=== PATIENT | male | born 1985 | race Caucasian/White ===

== ENCOUNTER 2018-09-10 17:29 | Emergency (ER) | payer SELFPAY ==
[~2018-09-10] VITALS: Ht 165.1 cm; Wt 74.8 kg
[2018-09-10] MEDS ORDERED: CEFTRIAXONE 1 G VIAL IM ONE (18:00)
[2018-09-10] MEDS ORDERED: AZITHROMYCIN 250 MG TABLET PO ONE (18:00)
[2018-09-10] MEDS ORDERED: CEFTRIAXONE 1 G VIAL ONE (18:06)
[2018-09-10] MEDS ORDERED: LIDOCAINE /MPF 1% VIAL 5 ML VIAL ONE (18:06)
[2018-09-10] MEDS ORDERED: LORAZEPAM 1 MG TABLET ONE (18:06)
[2018-09-10] MEDS ORDERED: AZITHROMYCIN 250 MG TABLET ONE (18:07)
[2018-09-10 18:16] LABS: BASOPHILS % (AUTO) 0.4 % (0.0-2.0); EOSINOPHILS % (AUTO) 0.9 % (0.0-6.0); HEMATOCRIT 53 % (39-51); HEMOGLOBIN 18.4 g/dL (13.5-17.5); LYMPHOCYTES # (AUTO) 0.7 /CMM (0.8-4.8); LYMPHOCYTES % (AUTO) 15.2 % (20.0-44.0); MEAN CORPUSCULAR HGB CONC 35 g/dl (31.0-36.0); MEAN CORPUSCULAR VOLUME 102 fL (80-96); MONOCYTES # (AUTO) 0.5 /CMM (0.1-1.30); MONOCYTES % (AUTO) 10.4 % (2.0-12.0); NEUTROPHILS # (AUTO) 3.3 /CMM (1.8-8.9); NEUTROPHILS % (AUTO) 73.1 % (43.0-81.0); PLATELET COUNT (AUTO) 190 /CMM (150-450); RED BLOOD CELL COUNT(AUTO) 5.23 MIL/uL (4.5-6.0); WHITE BLOOD COUNT (AUTO) 4.5 K/uL (4.3-11.0)
[2018-09-10 18:25] LABS: CALCIUM, SERUM 9.5 mg/dL (8.5-10.1); CARBON DIOXIDE 26 mmol/L (21-32); CHLORIDE 103 mmol/L (98-107); CREATININE 1.1 mg/dL (0.6-1.3); GLUCOSE 113 mg/dL (74-106); POTASSIUM 3.8 mmol/L (3.5-5.1); SODIUM SERUM 138 mmol/L (136-145); UREA NITROGEN, BLOOD 12 mg/dL (7-18)
[2018-09-10] MEDS ORDERED: LORAZEPAM 1 MG TABLET PO ONE (18:30)
[2018-09-10 18:31] LABS: ALANINE AMINOTRANSFERASE 47 U/L (12-78); ALKALINE PHOSPHATASE 65 U/L (46-116); ASPARTATE AMINOTRANSFERASE 42 U/L (15-37); BILIRUBIN,DIRECT 0.2 mg/dL (0.0-0.2); BILIRUBIN,TOTAL 0.7 mg/dL (0.2-1.0); TOTAL PROTEIN, SERUM 8.6 g/dL (6.4-8.2)
[2018-09-10 19:01] LABS: EOSINOPHILS % (MANUAL) 1 % (0-4); LYMPHOCYTES % (MANUAL) 17 % (16-48); MONOCYTES % (MANUAL) 8 % (0-11.0); NEUTROPHILS % (MANUAL) 74 (42-76)
[2018-09-10 19:03] VITALS: BP 148/95
--- NOTE | 2018-09-10 19:03 | NUR ---
PT BIBSELF FOR ANXIETY AND PANIC ATTAKCS SINCE THIS AM; PT AAOX4, RESPIRATIONS EVEN AND UNLABORED, NO SOB, NAD NOTED, VSS, PENDING ER PROVIDER CASPER
[2018-09-10 19:18] LABS: APPEARANCE,URINE Cloudy (CLEAR); BILIRUBIN,URINE SMALL (NEGATIVE); BLOOD, URINE Trace-intact Ery/uL (NEGATIVE); COLOR,URINE DARK YELLOW (YELLOW); KETONES,URINE 40 (NEGATIVE); LEUKOCYTE ESTERASE ,URINE Moderate (NEGATIVE); NITRITE, URINE Negative (NEGATIVE); PH,URINE 7.5 (5.0-8.0); PROTEIN,URINE 100 mg/dl (NEGATIVE); UGLUCOSE Negative (NEGATIVE)
[2018-09-10 19:26] LABS: BACTERIA,URINE Moderate /HPF (None Seen); SQUAMOUS EPITHELIAL CELL,UR Few /HPF (None Seen); WBC,URINE 21-50 /HPF (0-3)
[2018-09-10 19:27] LABS: MUCUS,URINE Many /LPF (None Seen)
--- NOTE | 2018-09-10 19:56 | NUR ---
Patient discharged to home in stable condition. Written and verbal after care instructions given. Patient verbalizes understanding of instruction.
== END 2018-09-10 19:57 | disposition home or self-care (01) ==
LOC: ER 17:33
DX: F41.9 Anxiety disorder, unspecified (principal); R07.89 Other chest pain; E86.0 Dehydration; F10.10 Alcohol abuse, uncomplicated
CPT/HCPCS: 36415; 71045; 80048; 80076; 80305; 81001; 84484; 85025; 85730; 87086; 87491; 87591; 93005; 96372; 99284; A4606; J0696; J3490; Z7610; 81000-TC

== ENCOUNTER 2022-07-18 05:46 | Emergency (ER) | payer OTHER ==
[~2022-07-18] VITALS: Ht 180.3 cm; Wt 113.4 kg
[~2022-07-18 05:46] MED LIST: CHLO25CA22 PO
--- NOTE | 2022-07-18 05:56 | NUR ---
PRESENTED TO THE ER FOR C/O HIGH BP AND ALCOHOL WITHDRAWAL. PER PT HE HAD HIS LAST DRINK 3 DAYS AGO. + SHAKING. DENIED ANY CP. NO SOB. NO FEVER. PT WAS PLACED IN BED 12 ER ON A MONITOR. AWAITING FOR MARY ALICE SHIRLEY.
[2022-07-18] MEDS ORDERED: LORAZEPAM INJ 2 MG/ML VIAL ONE (06:20)
--- NOTE | 2022-07-18 06:25 | NUR ---
URINE COLLECTED AND SENT TO LAB
[2022-07-18] MEDS ORDERED: LORAZEPAM INJ 2 MG/ML VIAL IVP ONE (06:30)
[2022-07-18] MEDS ORDERED: IV NS 0.9% 1,000 ML BAG IV ONE (06:30)
[2022-07-18 06:31] LABS: BASOPHILS % (AUTO) 0.6 % (0.0-2.0); EOSINOPHILS % (AUTO) 1.2 % (0.0-6.0); HEMATOCRIT 48 % (39-51); HEMOGLOBIN 16.3 g/dL (13.5-17.5); LYMPHOCYTES % (AUTO) 30.2 % (20.0-44.0); MEAN CORPUSCULAR HGB CONC 34 g/dl (31.0-36.0); MEAN CORPUSCULAR VOLUME 103 fL (80-96); MONOCYTES # (AUTO) 0.4 K/uL (0.1-1.30); MONOCYTES % (AUTO) 11.4 % (2.0-12.0); NEUTROPHILS # (AUTO) 1.9 K/uL (1.8-8.9); NEUTROPHILS % (AUTO) 56.6 % (43.0-81.0); PLATELET COUNT (AUTO) 152 K/uL (150-450); RED BLOOD CELL COUNT(AUTO) 4.69 MIL/uL (4.5-6.0); WHITE BLOOD COUNT (AUTO) 3.3 K/uL (4.3-11.0)
[2022-07-18 06:43] LABS: ALANINE AMINOTRANSFERASE 63 U/L (12-78); ALBUMIN 3.5 g/dL (3.4-5.0); ALKALINE PHOSPHATASE 69 U/L (46-116); ASPARTATE AMINOTRANSFERASE 87 U/L (15-37); BILIRUBIN,DIRECT 0.2 mg/dL (0.0-0.2); CALCIUM, SERUM 8.4 mg/dL (8.5-10.1); CARBON DIOXIDE 27 mmol/L (21-32); CHLORIDE 104 mmol/L (98-107); GLUCOSE 106 mg/dL (74-106); POTASSIUM 3.9 mmol/L (3.5-5.1); SODIUM SERUM 136 mmol/L (136-145); TOTAL PROTEIN, SERUM 7.7 g/dL (6.4-8.2); UREA NITROGEN, BLOOD 12 mg/dL (7-18)
[2022-07-18 06:48] LABS: ACETAMINOPHEN 0 ug/ml (10-30)
[2022-07-18 07:07] LABS: ALCOHOL, BLOOD 3 mg/dL (0-0)
--- NOTE | 2022-07-18 07:52 | NUR ---
COVID SWAB COLLECTED AND SENT TO LAB
--- NOTE | 2022-07-18 08:02 | NUR ---
[facility] [phone]
[2022-07-18] MEDS ORDERED: LORA-259 PO (08:20)
--- NOTE | 2022-07-18 09:17 | NUR ---
IV removed. Catheter intact and site benign. Pressure and 4x4 applied to site. No bleeding noted.
--- NOTE | 2022-07-18 09:21 | NUR ---
Patient discharged to home in stable condition. Written and verbal after care instructions given. Patient verbalizes understanding of instruction.
[2022-07-18 09:22] VITALS: BP 145/90
[2022-07-18 09:22] LABS: BILIRUBIN,URINE NEGATIVE (NEGATIVE); COLOR,URINE YELLOW (YELLOW); LEUKOCYTE ESTERASE ,URINE NEGATIVE (NEGATIVE); NITRITE, URINE NEGATIVE (NEGATIVE); PROTEIN,URINE TRACE mg/dl (NEGATIVE); UGLUCOSE NEGATIVE (NEGATIVE); UROBILINOGEN,URINE 0.2 EU/dL (0.2)
[2022-07-18 09:39] LABS: BACTERIA,URINE None seen /HPF (None Seen); RBC,URINE 0-2 /HPF (0-2); SQUAMOUS EPITHELIAL CELL,UR Rare /HPF (None Seen)
== END 2022-07-18 09:32 | disposition home or self-care (01) ==
LOC: ER 05:46
DX: F10.139 Alcohol abuse with withdrawal, unspecified (principal); I10 Essential (primary) hypertension; F19.10 Other psychoactive substance abuse, uncomplicated; R00.0 Tachycardia, unspecified; Z20.822 Contact with and (suspected) exposure to COVID-19
CPT/HCPCS: 99285; 96374; 96361; 93005; 71045; 85025; 80048; 87086; 80076; 81001; 36415; 87426; 80143; 80320; 80307; J2060; J7030; C9803; G0480

== ENCOUNTER 2022-11-22 08:28 | Emergency (ER) | payer OTHER ==
[~2022-11-22] VITALS: Ht 177.8 cm; Wt 116.6 kg
[~2022-11-22 08:28] MED LIST changes: +LORA-259 PO
--- NOTE | 2022-11-22 08:48 | NUR ---
Been an alcoholic x10yrs. Decided today I want to quit. Having withdrawals It got so bad- Drank on the way here. To er bed 11 awaiting md moralez.
--- NOTE | 2022-11-22 09:07 | NUR ---
dr camejo at bedside for eval.
[2022-11-22] MEDS ORDERED: ONDANSETRON HCL/PF 4 MG/2 ML VIAL ONE (09:12)
[2022-11-22] MEDS ORDERED: LORAZEPAM INJ 2 MG/ML VIAL ONE (09:13)
[2022-11-22] MEDS ORDERED: FAMOTIDINE/PF INJ 20 MG/2 ML VIAL IV ONE ×2 (09:13→09:30)
[2022-11-22] MEDS ORDERED: ONDANSETRON HCL/PF 4 MG/2 ML VIAL IV ONE (09:30)
[2022-11-22] MEDS ORDERED: LORAZEPAM INJ 2 MG/ML VIAL IV ONE (09:30)
[2022-11-22] MEDS ORDERED: IV NS 0.9% 1,000 ML IV ONE (09:30)
[2022-11-22] MEDS ORDERED: CHLO25CA22 PO (10:24)
--- NOTE | 2022-11-22 10:35 | NUR ---
pt resting, easily arousable. will continue to monitor.
--- NOTE | 2022-11-22 11:00 | NUR ---
Patient discharged to home in stable condition. Written and verbal after care instructions given. Patient verbalizes understanding of instruction.IV removed. Catheter intact and site benign. Pressure and 4x4 applied to site. No bleeding noted.
[2022-11-22 11:01] VITALS: BP 150/101
== END 2022-11-22 11:01 | disposition home or self-care (01) ==
LOC: ER 08:32
DX: F10.239 Alcohol dependence with withdrawal, unspecified (principal); I10 Essential (primary) hypertension; Z79.899 Other long term (current) drug therapy; Y90.9 Presence of alcohol in blood, level not specified
CPT/HCPCS: 99284; 96374; 96375; 96361; J2060; J3490; J2405; J7030

== ENCOUNTER 2022-11-25 01:31 | Emergency (ER) | payer OTHER ==
[~2022-11-25] VITALS: Ht 180.3 cm; Wt 116.6 kg
--- NOTE | 2022-11-25 02:25 | NUR ---
BIBBF FROM HOME C/O TAKING WRONG DOSE OF LIBRIUM ORDERED. C/O ABD PAIN, N/V, PALPITATIONS.PATIENT AWAKE AND ALERTX4 RR EVEN AND UNLABORED. DENIES ANY INTENTIONAL ATTEMPT TO OD, STATES HE JUST MISUNDERSTOOD DOSING. PLACED ON MONITOR AND NOTED HYPERTENSIVE.
--- NOTE | 2022-11-25 02:26 | NUR ---
DR MO SLADE AT PT'S BEDSIDE FOR EVAL
[2022-11-25] MEDS ORDERED: hydrALAZINE HCL IV 20 MG VIAL IV ONE ×2 (02:30→03:30)
[2022-11-25] MEDS ORDERED: hydrALAZINE HCL IV 20 MG VIAL ONE ×2 (02:32→03:30)
--- NOTE | 2022-11-25 02:46 | NUR ---
20G IV STARTED AT . BLOOD SENT TO LAB
--- NOTE | 2022-11-25 02:52 | NUR ---
PT BEING TRANSPORTED TO CT
[2022-11-25 03:11] LABS: EOSINOPHILS % (AUTO) 1.1 % (0.0-6.0); HEMATOCRIT 48 % (39-51); HEMOGLOBIN 15.8 g/dL (13.5-17.5); LYMPHOCYTES % (AUTO) 19.6 % (20.0-44.0); MEAN CORPUSCULAR HGB CONC 33 g/dl (31.0-36.0); MEAN CORPUSCULAR VOLUME 109 fL (80-96); MONOCYTES # (AUTO) 0.6 K/uL (0.1-1.30); MONOCYTES % (AUTO) 12.5 % (2.0-12.0); NEUTROPHILS # (AUTO) 3.4 K/uL (1.8-8.9); NEUTROPHILS % (AUTO) 66.8 % (43.0-81.0); PLATELET COUNT (AUTO) 110 K/uL (150-450)
[2022-11-25 03:21] LABS: CALCIUM, SERUM 9.2 mg/dL (8.5-10.1); CARBON DIOXIDE 25 mmol/L (21-32); CHLORIDE 101 mmol/L (98-107); GLUCOSE 113 mg/dL (74-106); SODIUM SERUM 136 mmol/L (136-145); UREA NITROGEN, BLOOD 16 mg/dL (7-18)
[2022-11-25 03:27] LABS: ALANINE AMINOTRANSFERASE 36 U/L (12-78); ALBUMIN 3.3 g/dL (3.4-5.0); ALKALINE PHOSPHATASE 78 U/L (46-116); ASPARTATE AMINOTRANSFERASE 45 U/L (15-37); BILIRUBIN,DIRECT 0.3 mg/dL (0.0-0.2); BILIRUBIN,TOTAL 0.9 mg/dL (0.2-1.0); TOTAL PROTEIN, SERUM 7.1 g/dL (6.4-8.2)
[2022-11-25] MEDS ORDERED: HYDR12.55 PO (04:07)
[2022-11-25] MEDS ORDERED: POTASSIUM CHLORIDE 20 MEQ TAB.PRT.SR PO ONE ×2 (04:30→04:35)
[2022-11-25 06:19] VITALS: BP 177/111
== END 2022-11-25 06:19 | disposition home or self-care (01) ==
LOC: ER 01:33
DX: I16.0 Hypertensive urgency (principal); R00.2 Palpitations; R42 Dizziness and giddiness; I10 Essential (primary) hypertension
CPT/HCPCS: 99285; 96374; 70450; 71045; 93005; 96376; 85025; 80048; 80076; 36415; 84484 ×2; 85730; J0360 ×2

== ENCOUNTER 2023-01-03 08:03 | Emergency (ER) | payer OTHER ==
[~2023-01-03] VITALS: Ht 177.8 cm; Wt 116.1 kg
[~2023-01-03 08:03] MED LIST changes: +HYDR12.55 PO
--- NOTE | 2023-01-03 08:25 | NUR ---
RECEIVED PT 37 YRS MALE FROM HOME WALKING IN C/O ETOH WITHDROW N/V AWAKE AND ALERT
--- NOTE | 2023-01-03 08:40 | NUR ---
SEEN BY DR. HANKS AT BED SIDE
[2023-01-03] MEDS ORDERED: CHLO25CA22 PO (08:43)
--- NOTE | 2023-01-03 08:50 | NUR ---
INsetrted garethocatheter g [address] forarm blood drow and sent to lab
[2023-01-03] MEDS ORDERED: LORAZEPAM INJ 2 MG/ML VIAL IV ONE ×2 (09:00→10:30)
[2023-01-03] MEDS ORDERED: IV NS 0.9% 1,000 ML IV ONE (09:00)
[2023-01-03] MEDS ORDERED: ONDANSETRON HCL/PF 4 MG/2 ML VIAL IV ONE (09:00)
--- NOTE | 2023-01-03 09:10 | NUR ---
UA SENT TO LAB
[2023-01-03] MEDS ORDERED: ONDANSETRON HCL/PF 4 MG/2 ML VIAL ONE (09:11)
[2023-01-03] MEDS ORDERED: LORAZEPAM INJ 2 MG/ML VIAL ONE ×2 (09:12→10:11)
--- NOTE | 2023-01-03 09:47 | NUR ---
RESTING AND COMFORTABLE NO N/V
--- NOTE | 2023-01-03 10:04 | NUR ---
PT ASLEEPY LOOKS COMFORTABLE
[2023-01-03] MEDS ORDERED: CHLORDIAZEPOXIDE HCL 25 MG CAPSULE ONE (10:10)
[2023-01-03] MEDS ORDERED: AMLO-212 PO (10:15)
[2023-01-03] MEDS ORDERED: CHLORDIAZEPOXIDE HCL 25 MG CAPSULE PO ONE (10:30)
--- NOTE | 2023-01-03 10:35 | NUR ---
RESTING AND ASLEEPY NO N/V NOTED
--- NOTE | 2023-01-03 11:00 | NUR ---
IV removed. Catheter intact and site benign. Pressure and 4x4 applied to site. No bleeding noted.
--- NOTE | 2023-01-03 11:04 | NUR ---
Patient discharged to home in stable condition. Written and verbal after care instructions given. Patient verbalizes understanding of instruction.
[2023-01-03 11:15] VITALS: BP 148/100
== END 2023-01-03 11:17 | disposition home or self-care (01) ==
LOC: ER 08:06
DX: K29.20 Alcoholic gastritis without bleeding (principal); F10.139 Alcohol abuse with withdrawal, unspecified; I10 Essential (primary) hypertension; Z79.899 Other long term (current) drug therapy; Y90.9 Presence of alcohol in blood, level not specified
CPT/HCPCS: 99285; 96374; 96361; 96375; 96376; J2060 ×2; J2405; J7030

== ENCOUNTER 2023-06-09 07:24 | Emergency (ER) | payer MEDICAID, OTHER ==
[~2023-06-09] VITALS: Ht 180.3 cm; Wt 119.7 kg
[~2023-06-09 07:24] MED LIST changes: +AMLO-212 PO
[2023-06-09] MEDS ORDERED: LORAZEPAM 1 MG TABLET PO ONE (08:30)
[2023-06-09] MEDS ORDERED: CHLO25CA22 PO ×2 (08:33→12:57)
[2023-06-09] MEDS ORDERED: LORAZEPAM 1 MG TABLET ONE (08:37)
[2023-06-09 09:44] VITALS: BP 175/125; TEMP 98.3; O2SAT 99
== END 2023-06-09 09:45 | disposition home or self-care (01) ==
LOC: ER 07:27
DX: F10.239 Alcohol dependence with withdrawal, unspecified (principal); I10 Essential (primary) hypertension; Y90.9 Presence of alcohol in blood, level not specified
CPT/HCPCS: 99283; A4223

== ENCOUNTER 2023-09-16 06:12 | Emergency (ER) | payer SELFPAY ==
[~2023-09-16] VITALS: Ht 180.3 cm; Wt 118.4 kg
[2023-09-16] MEDS ORDERED: PHENOBARBITAL SODIUM 130 MG/ML VIAL ONE ×2 (06:52→09:00)
[2023-09-16] MEDS ORDERED: ONDANSETRON HCL/PF 4 MG/2 ML VIAL ONE (06:52)
[2023-09-16] MEDS ORDERED: THIAMINE HCL 100 MG TABLET PO ONE (07:00)
[2023-09-16] MEDS ORDERED: ONDANSETRON HCL/PF 4 MG/2 ML VIAL IVP ONE (07:00)
[2023-09-16] MEDS ORDERED: PHENOBARBITAL SODIUM 130 MG/ML VIAL IV ONE ×2 (07:00→09:00)
[2023-09-16] MEDS ORDERED: IV NS 0.9% 1,000 ML BAG IV ONE ×2 (07:00→09:00)
[2023-09-16] MEDS ORDERED: MULTIVITAMINS,THERAGRAN 1 UDTAB TABLET PO SCH (07:00)
[2023-09-16 07:22] VITALS: TEMP 98.1
[2023-09-16 07:23] LABS: BASOPHILS % (AUTO) 0.5 % (0.0-2.0); EOSINOPHILS % (AUTO) 1.4 % (0.0-6.0); HEMATOCRIT 47 % (39-51); HEMOGLOBIN 15.7 g/dL (13.5-17.5); LYMPHOCYTES # (AUTO) 0.8 K/uL (0.8-4.8); LYMPHOCYTES % (AUTO) 31.2 % (20.0-44.0); MEAN CORPUSCULAR HEMOGLOBIN 35 PG (26.0-33.0); MEAN CORPUSCULAR HGB CONC 34 g/dl (31.0-36.0); MEAN CORPUSCULAR VOLUME 105 fL (80-96); MONOCYTES # (AUTO) 0.4 K/uL (0.1-1.30); MONOCYTES % (AUTO) 14.8 % (2.0-12.0); NEUTROPHILS # (AUTO) 1.4 K/uL (1.8-8.9); NEUTROPHILS % (AUTO) 52.1 % (43.0-81.0); PLATELET COUNT (AUTO) 122 K/uL (150-450); RED BLOOD CELL COUNT(AUTO) 4.44 MIL/uL (4.5-6.0); RED CELL DISTRIBUTION WIDTH 19.5 % (11.5-15.0); WHITE BLOOD COUNT (AUTO) 2.7 K/uL (4.3-11.0)
[2023-09-16] MEDS ORDERED: MULTIVITAMINS,THERAGRAN 1 UDTAB TABLET ONE (07:24)
[2023-09-16] MEDS ORDERED: THIAMINE HCL 100 MG TABLET ONE (07:24)
[2023-09-16 07:28] LABS: CALCIUM, SERUM 7.9 mg/dL (8.5-10.1); CREATININE 0.9 mg/dL (0.6-1.3); POTASSIUM 3.5 mmol/L (3.5-5.1)
[2023-09-16] MEDS ORDERED: CHLO25CA22 PO ×2 (10:43→15:52)
[2023-09-16 11:01] VITALS: BP 145/87; O2SAT 98
== END 2023-09-16 11:02 | disposition home or self-care (01) ==
LOC: ER 06:17
DX: F10.239 Alcohol dependence with withdrawal, unspecified (principal); I10 Essential (primary) hypertension; E86.0 Dehydration; R11.0 Nausea; Y90.9 Presence of alcohol in blood, level not specified
CPT/HCPCS: 99284; 96374; 96361; 96375; 96376; 85025; 80048; 36415; J2560 ×2; J2405; J7030 ×2

== ENCOUNTER 2023-11-28 06:09 | Emergency (ER) | payer MEDICAID ==
[~2023-11-28] VITALS: Ht 185.4 cm; Wt 94.3 kg
[2023-11-28] MEDS ORDERED: ONDANSETRON HCL/PF 4 MG/2 ML VIAL ONE (07:29)
[2023-11-28] MEDS ORDERED: hydrALAZINE HCL IV 20 MG VIAL ONE (07:29)
[2023-11-28] MEDS ORDERED: LORAZEPAM INJ 2 MG/ML VIAL ONE (07:29)
[2023-11-28] MEDS ORDERED: Thiamine 100 MG/ML VIAL ONE (07:29)
[2023-11-28 07:36] LABS: BASOPHILS % (AUTO) 0.3 % (0.0-2.0); EOSINOPHILS # (AUTO) 0.1 K/uL (0.0-0.7); EOSINOPHILS % (AUTO) 1.3 % (0.0-6.0); HEMATOCRIT 46 % (39-51); HEMOGLOBIN 15.8 g/dL (13.5-17.5); LYMPHOCYTES # (AUTO) 1.1 K/uL (0.8-4.8); LYMPHOCYTES % (AUTO) 27.5 % (20.0-44.0); MEAN CORPUSCULAR HEMOGLOBIN 35 PG (26.0-33.0); MEAN CORPUSCULAR HGB CONC 35 g/dl (31.0-36.0); MEAN CORPUSCULAR VOLUME 103 fL (80-96); MONOCYTES # (AUTO) 0.6 K/uL (0.1-1.30); MONOCYTES % (AUTO) 14.7 % (2.0-12.0); NEUTROPHILS # (AUTO) 2.2 K/uL (1.8-8.9); NEUTROPHILS % (AUTO) 56.2 % (43.0-81.0); PLATELET COUNT (AUTO) 151 K/uL (150-450); RED BLOOD CELL COUNT(AUTO) 4.46 MIL/uL (4.5-6.0); RED CELL DISTRIBUTION WIDTH 16.7 % (11.5-15.0); WHITE BLOOD COUNT (AUTO) 3.8 K/uL (4.3-11.0)
[2023-11-28] MEDS: Thiamine 100 MG in IV D5W 50 ML IV SCH (07:41)
[2023-11-28] MEDS: LORAZEPAM INJ 2 MG/ML VIAL IV ONE (07:41)
[2023-11-28] MEDS: hydrALAZINE HCL IV 20 MG VIAL IV ONE (07:41)
[2023-11-28] MEDS: IV NS 0.9% 1,000 ML BAG IV ONE (07:41)
[2023-11-28] MEDS: ONDANSETRON HCL/PF - ER 4 MG/2 ML VIAL IV ONE (07:41)
[2023-11-28 07:47] LABS: APPEARANCE,URINE CLEAR (CLEAR); BILIRUBIN,URINE 1+ (NEGATIVE); BLOOD, URINE TRACE-INTA Ery/uL (NEGATIVE); COLOR,URINE YELLOW (YELLOW); KETONES,URINE 1+ mg/dL (NEGATIVE); LEUKOCYTE ESTERASE ,URINE NEGATIVE (NEGATIVE); NITRITE, URINE NEGATIVE (NEGATIVE); PH,URINE 6.5 (5.0-8.0); PROTEIN,URINE 2+ mg/dl (NEGATIVE); UGLUCOSE NEGATIVE (NEGATIVE)
[2023-11-28 07:51] LABS: CALCIUM, SERUM 8.4 mg/dL (8.5-10.1); CARBON DIOXIDE 27 mmol/L (21-32); CHLORIDE 104 mmol/L (98-107); CREATININE 0.8 mg/dL (0.6-1.3); GLUCOSE 95 mg/dL (74-106); POTASSIUM 3.6 mmol/L (3.5-5.1); SODIUM SERUM 141 mmol/L (136-145); UREA NITROGEN, BLOOD 10 mg/dL (7-18)
[2023-11-28 07:59] LABS: ALANINE AMINOTRANSFERASE 87 U/L (12-78); ALBUMIN 3.5 g/dL (3.4-5.0); ALCOHOL, BLOOD 37 mg/dL (0-10); ALKALINE PHOSPHATASE 56 U/L (46-116); ASPARTATE AMINOTRANSFERASE 162 U/L (15-37); BILIRUBIN,DIRECT 0.3 mg/dL (0.0-0.2); TOTAL PROTEIN, SERUM 7.6 g/dL (6.4-8.2)
[2023-11-28 08:02] LABS: SALICYLATE < 0.2 mg/dL (2.8-20.0)
[2023-11-28 08:03] LABS: ACETAMINOPHEN <10 ug/ml (10-30)
[2023-11-28 08:12] LABS: AMPHETAMINE, URINE NEGATIVE (NEGATIVE); BARBITURATE, URINE NEGATIVE (NEGATIVE); BENZODIAZEPINE, URINE NEGATIVE (NEGATIVE); COCCAINE, URINE NEGATIVE (NEGATIVE); OPIATE, URINE NEGATIVE (NEGATIVE); PHENCYCLIDINE SCREEN,URINE NEGATIVE (NEGATIVE)
[2023-11-28 08:13] LABS: CANNABINOID, URINE POSITIVE (NEGATIVE)
[2023-11-28 08:35] LABS: ADD URINE CULTURE NO; BACTERIA,URINE None seen /HPF (None Seen); WBC,URINE NONE SEEN /HPF (0-3)
[2023-11-28 08:36] LABS: MUCUS,URINE Moderate /LPF (None Seen)
[2023-11-28] MEDS ORDERED: CHLO25CA22 PO (08:50)
[2023-11-28] MEDS ORDERED: AMLO-212 PO (08:50)
[2023-11-28 09:19] VITALS: BP 128/78; TEMP 98.2; O2SAT 97
== END 2023-11-28 09:20 | disposition home or self-care (01) ==
LOC: ER 06:09
DX: F10.139 Alcohol abuse with withdrawal, unspecified (principal); I10 Essential (primary) hypertension; Z79.899 Other long term (current) drug therapy; Y90.1 Blood alcohol level of 20-39 mg/100 ml
CPT/HCPCS: 36415; 71045-TC; 80048-TC; 80076-TC; 81001; 85025-TC; G0480; J0360; J2060; J2405; J3411; J7030; J7060

== ENCOUNTER 2024-01-08 04:14 | Emergency (ER) | payer MEDICAID ==
[~2024-01-08] VITALS: Ht 182.9 cm; Wt 90.7 kg
[2024-01-08] MEDS ORDERED: ONDANSETRON HCL/PF 4 MG/2 ML VIAL ONE (04:48)
[2024-01-08] MEDS ORDERED: LORAZEPAM INJ 2 MG/ML VIAL ONE (04:49)
[2024-01-08] MEDS: IV NS 0.9% 1,000 ML BAG IV ONE (05:14)
[2024-01-08] MEDS: LORAZEPAM INJ 2 MG/ML VIAL IV ONE (05:14)
[2024-01-08] MEDS: ONDANSETRON HCL/PF 4 MG/2 ML VIAL IVP ONE (05:14)
[2024-01-08 05:29] LABS: BASOPHILS % (AUTO) 0.4 % (0.0-2.0); EOSINOPHILS # (AUTO) 0.1 K/uL (0.0-0.7); EOSINOPHILS % (AUTO) 1.2 % (0.0-6.0); HEMATOCRIT 47 % (39-51); LYMPHOCYTES # (AUTO) 2.5 K/uL (0.8-4.8); LYMPHOCYTES % (AUTO) 44.1 % (20.0-44.0); MEAN CORPUSCULAR HEMOGLOBIN 34 PG (26.0-33.0); MEAN CORPUSCULAR HGB CONC 34 g/dl (31.0-36.0); MEAN CORPUSCULAR VOLUME 101 fL (80-96); MONOCYTES # (AUTO) 0.5 K/uL (0.1-1.30); MONOCYTES % (AUTO) 9.4 % (2.0-12.0); NEUTROPHILS # (AUTO) 2.5 K/uL (1.8-8.9); NEUTROPHILS % (AUTO) 44.9 % (43.0-81.0); PLATELET COUNT (AUTO) 181 K/uL (150-450); RED BLOOD CELL COUNT(AUTO) 4.65 MIL/uL (4.5-6.0); RED CELL DISTRIBUTION WIDTH 15.9 % (11.5-15.0); WHITE BLOOD COUNT (AUTO) 5.6 K/uL (4.3-11.0)
[2024-01-08] MEDS ORDERED: CHLO25CA22 PO (05:34)
[2024-01-08] MEDS ORDERED: ONDA4TAB5 PO (05:34)
[2024-01-08 05:42] LABS: BILIRUBIN,DIRECT 0.3 mg/dL (0.0-0.2); BILIRUBIN,TOTAL 1.1 mg/dL (0.2-1.0); CALCIUM, SERUM 8.3 mg/dL (8.5-10.1); POTASSIUM 3.2 mmol/L (3.5-5.1); TOTAL PROTEIN, SERUM 6.7 g/dL (6.4-8.2)
[2024-01-08 06:18] VITALS: BP 136/89; TEMP 98.6; O2SAT 98
== END 2024-01-08 06:18 | disposition home or self-care (01) ==
LOC: ER 04:17
DX: F10.139 Alcohol abuse with withdrawal, unspecified (principal); I10 Essential (primary) hypertension; M79.10 Myalgia, unspecified site; Y90.9 Presence of alcohol in blood, level not specified
CPT/HCPCS: 99284; 96374; 96361; 96375; 93005; 85025; 80048; 83690; 80076; 36415; J2060; J2405; J7030

== ENCOUNTER 2024-05-23 19:59 | Emergency (ER) | payer SELFPAY ==
[~2024-05-23] VITALS: Ht 177.8 cm; Wt 113.4 kg
[~2024-05-23 19:59] MED LIST changes: +ONDA4TAB5 PO
[2024-05-23] MEDS: FOLIC ACID 1 MG TABLET PO ONE (21:00)
[2024-05-23] MEDS: THIAMINE HCL 100 MG TABLET PO ONE (21:00)
[2024-05-23] MEDS: IV NS 0.9% 1,000 ML BAG IV ONE (21:00)
[2024-05-23] MEDS: FAMOTIDINE/PF INJ 20 MG/2 ML VIAL IV ONE (21:00)
[2024-05-23 21:11] LABS: BASOPHILS % (AUTO) 0.5 % (0.0-2.0); EOSINOPHILS # (AUTO) 0.1 K/uL (0.0-0.7); EOSINOPHILS % (AUTO) 1.1 % (0.0-6.0); HEMATOCRIT 51 % (39-51); HEMOGLOBIN 17.3 g/dL (13.5-17.5); LYMPHOCYTES # (AUTO) 1.6 K/uL (0.8-4.8); LYMPHOCYTES % (AUTO) 32.8 % (20.0-44.0); MEAN CORPUSCULAR HEMOGLOBIN 36 PG (26.0-33.0); MEAN CORPUSCULAR HGB CONC 34 g/dl (31.0-36.0); MEAN CORPUSCULAR VOLUME 104 fL (80-96); MONOCYTES # (AUTO) 0.7 K/uL (0.1-1.30); MONOCYTES % (AUTO) 14.2 % (2.0-12.0); NEUTROPHILS # (AUTO) 2.5 K/uL (1.8-8.9); NEUTROPHILS % (AUTO) 51.4 % (43.0-81.0); PLATELET COUNT (AUTO) 124 K/uL (150-450); RED BLOOD CELL COUNT(AUTO) 4.84 MIL/uL (4.5-6.0); RED CELL DISTRIBUTION WIDTH 14.7 % (11.5-15.0); WHITE BLOOD COUNT (AUTO) 4.8 K/uL (4.3-11.0)
[2024-05-23] MEDS ORDERED: FAMOTIDINE/PF INJ 20 MG/2 ML VIAL IV ONE (21:11)
[2024-05-23] MEDS ORDERED: FOLIC ACID 1 MG TABLET ONE (21:11)
[2024-05-23] MEDS ORDERED: THIAMINE HCL 100 MG TABLET ONE (21:11)
[2024-05-23] MEDS ORDERED: CHLO25CA22 PO (21:22)
[2024-05-23 21:45] LABS: CALCIUM, SERUM 8.5 mg/dL (8.5-10.1); POTASSIUM 3.4 mmol/L (3.5-5.1)
[2024-05-23 21:49] LABS: ALBUMIN 3.7 g/dL (3.4-5.0); BILIRUBIN,DIRECT 0.3 mg/dL (0.0-0.2); BILIRUBIN,TOTAL 1.1 mg/dL (0.2-1.0); TOTAL PROTEIN, SERUM 7.8 g/dL (6.4-8.2)
[2024-05-23 22:16] LABS: EOSINOPHILS % (MANUAL) 2 % (0-4); LYMPHOCYTES % (MANUAL) 32 % (16-48); MONOCYTES % (MANUAL) 11 % (0-11.0); NEUTROPHILS % (MANUAL) 55 (42-76); PLATELET ESTIMATE DECREASED
[2024-05-23 22:17] LABS: ANISOCYTOSIS 1+
[2024-05-24 00:53] VITALS: BP 126/79; TEMP 98.3; O2SAT 98
== END 2024-05-24 00:54 | disposition home or self-care (01) ==
LOC: ER 20:01
DX: K29.20 Alcoholic gastritis without bleeding (principal); F10.10 Alcohol abuse, uncomplicated; E86.0 Dehydration; I10 Essential (primary) hypertension; F17.290 Nicotine dependence, other tobacco product, uncomplicated; Z79.899 Other long term (current) drug therapy; Y90.9 Presence of alcohol in blood, level not specified
CPT/HCPCS: 99283; 96374; 96361; 85025; 80048; 83690; 80076; 36415; 85007; J3490; J7030

== ENCOUNTER 2024-09-23 05:52 | Emergency (ER) | payer SELFPAY ==
[~2024-09-23] VITALS: Ht 180.3 cm; Wt 113.4 kg
[2024-09-23] MEDS ORDERED: ONDANSETRON HCL/PF 4 MG/2 ML VIAL ONE (06:47)
[2024-09-23] MEDS ORDERED: FAMOTIDINE/PF INJ 20 MG/2 ML VIAL IV ONE (06:48)
[2024-09-23] MEDS: FAMOTIDINE/PF INJ 20 MG/2 ML VIAL IV ONE (06:53)
[2024-09-23] MEDS: ONDANSETRON HCL/PF 4 MG/2 ML VIAL IVP ONE (06:53)
[2024-09-23] MEDS: IV NS 0.9% 500 ML BAG IV ONE (06:53)
[2024-09-23 07:15] LABS: BASOPHILS % (AUTO) 0.6 % (0.0-2.0); EOSINOPHILS % (AUTO) 0.7 % (0.0-6.0); HEMATOCRIT 50 % (39-51); HEMOGLOBIN 17.5 g/dL (13.5-17.5); LYMPHOCYTES # (AUTO) 1.8 K/uL (0.8-4.8); LYMPHOCYTES % (AUTO) 37.1 % (20.0-44.0); MEAN CORPUSCULAR HEMOGLOBIN 36 PG (26.0-33.0); MEAN CORPUSCULAR HGB CONC 35 g/dl (31.0-36.0); MEAN CORPUSCULAR VOLUME 101 fL (80-96); MONOCYTES # (AUTO) 0.5 K/uL (0.1-1.30); MONOCYTES % (AUTO) 10.4 % (2.0-12.0); NEUTROPHILS # (AUTO) 2.5 K/uL (1.8-8.9); NEUTROPHILS % (AUTO) 51.2 % (43.0-81.0); PLATELET COUNT (AUTO) 110 K/uL (150-450); RED BLOOD CELL COUNT(AUTO) 4.94 MIL/uL (4.5-6.0); RED CELL DISTRIBUTION WIDTH 15.8 % (11.5-15.0); WHITE BLOOD COUNT (AUTO) 4.9 K/uL (4.3-11.0)
[2024-09-23 07:25] LABS: ALBUMIN 3.8 g/dL (3.4-5.0); BILIRUBIN,DIRECT 0.4 mg/dL (0.0-0.2); BILIRUBIN,TOTAL 1.4 mg/dL (0.2-1.0); CALCIUM, SERUM 8.3 mg/dL (8.5-10.1); POTASSIUM 3.7 mmol/L (3.5-5.1); TOTAL PROTEIN, SERUM 7.9 g/dL (6.4-8.2)
[2024-09-23] MEDS ORDERED: FAMO-131 PO (07:53)
[2024-09-23] MEDS ORDERED: CHLO25CA22 PO (07:53)
[2024-09-23 08:01] VITALS: BP 170/110; TEMP 98.4; O2SAT 100
== END 2024-09-23 08:02 | disposition home or self-care (01) ==
LOC: ER 05:52
DX: K29.20 Alcoholic gastritis without bleeding (principal); F10.10 Alcohol abuse, uncomplicated; I10 Essential (primary) hypertension; Z79.899 Other long term (current) drug therapy; Y90.9 Presence of alcohol in blood, level not specified
CPT/HCPCS: 99284; 96374; 96375; 85025; 80048; 83690; 80076; 36415; J3490; J2405; J7040

== ENCOUNTER 2024-09-25 03:18 | Emergency (ER) | payer SELFPAY ==
[~2024-09-25] VITALS: Ht 180.3 cm; Wt 113.4 kg
[~2024-09-25 03:18] MED LIST changes: +FAMO-131 PO
[2024-09-25] MEDS: PANTOPRAZOLE 40 MG TABLET.DR PO ONE (05:30)
[2024-09-25] MEDS ORDERED: PANT40TA49 PO (05:33)
[2024-09-25] MEDS ORDERED: ONDA4TAB5 PO (05:33)
[2024-09-25] MEDS ORDERED: PANTOPRAZOLE 40 MG TABLET.DR PO ONE (05:35)
[2024-09-25 05:53] VITALS: BP 157/110; TEMP 98.3; O2SAT 98
== END 2024-09-25 05:53 | disposition home or self-care (01) ==
LOC: ER 03:18
DX: K29.20 Alcoholic gastritis without bleeding (principal); I10 Essential (primary) hypertension; Z79.899 Other long term (current) drug therapy

== ENCOUNTER 2025-01-27 17:47 | Emergency (ER) | payer MEDICAID ==
[~2025-01-27] VITALS: Ht 177.8 cm; Wt 117.9 kg
[~2025-01-27 17:47] MED LIST changes: +PANT40TA49 PO
[2025-01-27 18:08] VITALS: TEMP 98.3
[2025-01-27] MEDS ORDERED: LIDOCAINE VISCOUS 2% UD 15 ML UDC ONE (18:27)
[2025-01-27] MEDS ORDERED: PANTOPRAZOLE 40 MG VIAL ONE (18:27)
[2025-01-27] MEDS ORDERED: MAG HYDROX/AL HYDROX/SIMETH 30 ML UDC ONE (18:27)
[2025-01-27] MEDS ORDERED: FAMOTIDINE/PF INJ 20 MG/2 ML VIAL IV ONE (18:27)
[2025-01-27] MEDS: IV NS 0.9% 1,000 ML BAG IV ONE (18:35)
[2025-01-27] MEDS: FAMOTIDINE/PF INJ 20 MG/2 ML VIAL IV ONE (18:36)
[2025-01-27] MEDS: PANTOPRAZOLE 40 MG VIAL IV ONE (18:37)
[2025-01-27 18:38] LABS: BASOPHILS % (AUTO) 0.3 % (0.0-2.0); EOSINOPHILS % (AUTO) 0.4 % (0.0-6.0); HEMATOCRIT 50 % (39-51); HEMOGLOBIN 17.3 g/dL (13.5-17.5); LYMPHOCYTES # (AUTO) 1.5 K/uL (0.8-4.8); MEAN CORPUSCULAR HEMOGLOBIN 36 PG (26.0-33.0); MEAN CORPUSCULAR HGB CONC 35 g/dl (31.0-36.0); MEAN CORPUSCULAR VOLUME 104 fL (80-96); MONOCYTES # (AUTO) 0.6 K/uL (0.1-1.30); MONOCYTES % (AUTO) 9.7 % (2.0-12.0); NEUTROPHILS # (AUTO) 4.3 K/uL (1.8-8.9); NEUTROPHILS % (AUTO) 66.6 % (43.0-81.0); PLATELET COUNT (AUTO) 136 K/uL (150-450); RED BLOOD CELL COUNT(AUTO) 4.82 MIL/uL (4.5-6.0); RED CELL DISTRIBUTION WIDTH 15.2 % (11.5-15.0); WHITE BLOOD COUNT (AUTO) 6.5 K/uL (4.3-11.0)
[2025-01-27] MEDS: LIDOCAINE VISCOUS 2% UD 15 ML UDC MM ONE (18:40)
[2025-01-27] MEDS: MAG HYDROX/AL HYDROX/SIMETH 30 ML UDC PO ONE (18:40)
[2025-01-27 18:48] LABS: CALCIUM, SERUM 8.8 mg/dL (8.5-10.1)
[2025-01-27] MEDS ORDERED: ACETAMINOPHEN 325 MG TABLET ONE (18:49)
[2025-01-27 18:54] LABS: ALBUMIN 3.6 g/dL (3.4-5.0)
[2025-01-27] MEDS: ACETAMINOPHEN 325 MG TABLET PO ONE (18:54)
[2025-01-27] MEDS: ACETAMINOPHEN 650 MG/20.3 ML UDC PO ONE (18:55)
[2025-01-27 19:37] LABS: APPEARANCE,URINE CLEAR (CLEAR); BILIRUBIN,URINE SMALL (NEGATIVE); BLOOD, URINE Negative Ery/uL (NEGATIVE); COLOR,URINE YELLOW (YELLOW); KETONES,URINE Trace mg/dL (NEGATIVE); LEUKOCYTE ESTERASE ,URINE Negative (NEGATIVE); PROTEIN,URINE 100 mg/dl (NEGATIVE); UGLUCOSE Negative (NEGATIVE)
[2025-01-27 19:39] LABS: ADD URINE CULTURE NO; BACTERIA,URINE None seen /HPF (None Seen); NITRITE, URINE NEGATIVE (NEGATIVE); RBC,URINE 0-2 /HPF (0-2); SQUAMOUS EPITHELIAL CELL,UR None Seen /HPF (None Seen); WBC,URINE 0-2 /HPF (0-3)
[2025-01-27 19:44] LABS: AMPHETAMINE, URINE NEGATIVE (NEGATIVE); BARBITURATE, URINE NEGATIVE (NEGATIVE); BENZODIAZEPINE, URINE NEGATIVE (NEGATIVE); COCCAINE, URINE NEGATIVE (NEGATIVE); OPIATE, URINE NEGATIVE (NEGATIVE); PHENCYCLIDINE SCREEN,URINE NEGATIVE (NEGATIVE)
[2025-01-27 19:45] LABS: CANNABINOID, URINE POSITIVE (NEGATIVE)
[2025-01-27] MEDS ORDERED: ONDA4TAB5 PO (20:01)
[2025-01-27] MEDS ORDERED: FAMO-131 PO (20:01)
[2025-01-27] MEDS ORDERED: CHLO25CA22 PO ×2 (20:01→20:03)
[2025-01-27] MEDS ORDERED: PANT40TA49 PO (20:01)
[2025-01-27 20:46] VITALS: BP 130/70; O2SAT 98
[2025-01-29] MEDS ORDERED: PANT40TA2 PO (12:12)
== END 2025-01-27 20:18 | disposition home or self-care (01) ==
LOC: ER 17:54
DX: K29.20 Alcoholic gastritis without bleeding (principal); R10.13 Epigastric pain; I10 Essential (primary) hypertension; Z79.899 Other long term (current) drug therapy; Z87.19 Personal history of other diseases of the digestive system
CPT/HCPCS: 99284; 96374; 96361; 96375; 93005; 85025; 83690; 81001; 36415; 80053; 80320; 80307; J1308; J2470; G0480

== ENCOUNTER 2025-01-28 07:35 | Inpatient (IN) | payer MEDICAID ==
[~2025-01-28] VITALS: Ht 177.8 cm; Wt 117.9 kg
[2025-01-28 07:00] VITALS: BP 154/89; TEMP 98.8; O2SAT 96
[2025-01-28] MEDS ORDERED: THIAMINE HCL 100 MG TABLET ONE (08:15)
[2025-01-28] MEDS ORDERED: FOLIC ACID 1 MG TABLET ONE (08:15)
[2025-01-28] MEDS ORDERED: LORAZEPAM INJ 2 MG/ML VIAL ONE (08:16)
[2025-01-28 08:21] LABS: BASOPHILS % (AUTO) 0.5 % (0.0-2.0); EOSINOPHILS % (AUTO) 0.5 % (0.0-6.0); HEMATOCRIT 47 % (39-51); HEMOGLOBIN 16.6 g/dL (13.5-17.5); LYMPHOCYTES # (AUTO) 1.1 K/uL (0.8-4.8); MEAN CORPUSCULAR HEMOGLOBIN 36 PG (26.0-33.0); MEAN CORPUSCULAR HGB CONC 35 g/dl (31.0-36.0); MEAN CORPUSCULAR VOLUME 103 fL (80-96); MONOCYTES # (AUTO) 0.6 K/uL (0.1-1.30); MONOCYTES % (AUTO) 12.7 % (2.0-12.0); NEUTROPHILS # (AUTO) 2.7 K/uL (1.8-8.9); NEUTROPHILS % (AUTO) 61.3 % (43.0-81.0); PLATELET COUNT (AUTO) 124 K/uL (150-450); RED CELL DISTRIBUTION WIDTH 15.3 % (11.5-15.0); WHITE BLOOD COUNT (AUTO) 4.3 K/uL (4.3-11.0)
[2025-01-28 08:25] LABS: CALCIUM, SERUM 8.8 mg/dL (8.5-10.1); POTASSIUM 3.4 mmol/L (3.5-5.1)
[2025-01-28] MEDS: LORAZEPAM INJ 2 MG/ML VIAL IV ONE (08:30)
[2025-01-28 08:31] LABS: ALBUMIN 3.5 g/dL (3.4-5.0); BILIRUBIN,DIRECT 0.6 mg/dL (0.0-0.2); BILIRUBIN,TOTAL 1.8 mg/dL (0.2-1.0); TOTAL PROTEIN, SERUM 7.6 g/dL (6.4-8.2)
[2025-01-28] MEDS: IV NS 0.9% 1,000 ML BAG IV ONE (08:31)
[2025-01-28] MEDS: FOLIC ACID 1 MG TABLET PO ONE (08:31)
[2025-01-28] MEDS: THIAMINE HCL 100 MG TABLET PO ONE (08:33)
[2025-01-28] MEDS ORDERED: Z GUARD REMEDY 4 OZ OINT TP PRN (09:30)
[2025-01-28] MEDS ORDERED: ONDANSETRON HCL/PF 4 MG/2 ML VIAL IVP PRN ×2 (09:30)
[2025-01-28] MEDS ORDERED: ACETAMINOPHEN 325 MG TABLET PO PRN (09:30)
[2025-01-28] MEDS ORDERED: MAGNESIUM HYDROXIDE 30 ML UDC PO PRN (09:30)
[2025-01-28 10:00] VITALS: BP 161/109; TEMP 97.9; O2SAT 100
[2025-01-28] MEDS: POTASSIUM CHLORIDE 20 MEQ TAB.PRT.SR PO ONE (11:04)
[2025-01-28] MEDS: IV NS 0.9% 1,000 ML IV SCH (11:27)
[2025-01-28] MEDS: LORAZEPAM 1 MG TABLET PO PRN (13:35)
[2025-01-28] MEDS: MAG HYDROX/AL HYDROX/SIMETH 30 ML UDC PO PRN (13:35)
[2025-01-28 16:00] VITALS: BP 166/107; TEMP 97.7; O2SAT 97
[2025-01-28] MEDS: CHLORDIAZEPOXIDE HCL 25 MG CAPSULE PO SCH (16:44)
[2025-01-28 16:57] VITALS: BP 166/117; TEMP 97.7; O2SAT 97
[2025-01-28] MEDS: CLONIDINE HCL 0.1 MG TABLET PO PRN (17:47)
[2025-01-28 20:00] VITALS: BP 140/98; TEMP 98.2; O2SAT 99
[2025-01-29] MEDS: ZOLPIDEM TARTRATE 5 MG TABLET PO PRN (00:52)
[2025-01-29 06:54] LABS: BASOPHILS % (AUTO) 0.4 % (0.0-2.0); EOSINOPHILS # (AUTO) 0.1 K/uL (0.0-0.7); EOSINOPHILS % (AUTO) 2.2 % (0.0-6.0); HEMATOCRIT 49 % (39-51); HEMOGLOBIN 16.7 g/dL (13.5-17.5); LYMPHOCYTES % (AUTO) 26.9 % (20.0-44.0); MEAN CORPUSCULAR HEMOGLOBIN 35 PG (26.0-33.0); MEAN CORPUSCULAR HGB CONC 34 g/dl (31.0-36.0); MEAN CORPUSCULAR VOLUME 104 fL (80-96); MONOCYTES # (AUTO) 0.5 K/uL (0.1-1.30); NEUTROPHILS # (AUTO) 2.2 K/uL (1.8-8.9); NEUTROPHILS % (AUTO) 58.5 % (43.0-81.0); PLATELET COUNT (AUTO) 119 K/uL (150-450); RED BLOOD CELL COUNT(AUTO) 4.72 MIL/uL (4.5-6.0); WHITE BLOOD COUNT (AUTO) 3.8 K/uL (4.3-11.0)
[2025-01-29 06:55] LABS: CALCIUM, SERUM 7.9 mg/dL (8.5-10.1); CREATININE 0.9 mg/dL (0.6-1.3); POTASSIUM 3.2 mmol/L (3.5-5.1)
[2025-01-29 07:00] VITALS: BP 166/97; TEMP 98.1; O2SAT 98
[2025-01-29] MEDS: PANTOPRAZOLE 40 MG TABLET.DR PO SCH (07:52)
[2025-01-29] MEDS: FOLIC ACID 1 MG TABLET PO SCH (08:20)
[2025-01-29] MEDS: MULTIVITAMIN/LUTEIN/MINERALS 1 TAB PO SCH (08:20)
[2025-01-29] MEDS: THIAMINE HCL 100 MG TABLET PO SCH (08:20)
[2025-01-29] MEDS: POTASSIUM CHLORIDE 20 MEQ TAB.PRT.SR PO SCH (10:21)
[2025-01-29 11:11] VITALS: BP 166/97
[2025-01-29] MEDS ORDERED: PANT40TA2 PO (12:12)
== END 2025-01-29 13:51 | disposition home or self-care (01) | DRG 775 ==
LOC: ER 07:37 → MED 10:19
PROVIDERS: ADMIT Nurse Practitioner Acute Care; ATTEND Nurse Practitioner Acute Care
DX: F10.239 Alcohol dependence with withdrawal, unspecified (principal); E80.6 Other disorders of bilirubin metabolism; F41.9 Anxiety disorder, unspecified; I10 Essential (primary) hypertension; K29.20 Alcoholic gastritis without bleeding; R74.01 Elevation of levels of liver transaminase levels
CPT/HCPCS: 36415; 80048-TC; 80076-TC; 83690-TC; 83735-TC; 84100-TC; 85025-TC; 87081-TC; A4223; G0378; J2060; J7030; J7050

== ENCOUNTER 2025-05-10 08:29 | Emergency (ER) | payer MEDICAID ==
[~2025-05-10] VITALS: Ht 180.3 cm; Wt 113.4 kg
[~2025-05-10 08:29] MED LIST changes: -AMLO-212 PO; -HYDR12.55 PO; -LORA-259 PO; +PANT40TA2 PO
[2025-05-10] MEDS ORDERED: ONDANSETRON HCL/PF 4 MG/2 ML VIAL ONE (09:14)
[2025-05-10] MEDS ORDERED: LORAZEPAM INJ 2 MG/ML VIAL ONE (09:15)
[2025-05-10] MEDS: LORAZEPAM INJ 2 MG/ML VIAL IV ONE (09:33)
[2025-05-10] MEDS: ONDANSETRON HCL/PF 4 MG/2 ML VIAL IV ONE (09:36)
[2025-05-10] MEDS: IV NS 0.9% 1,000 ML BAG IV ONE (09:36)
[2025-05-10] MEDS ORDERED: ONDA4TAB5 PO (09:59)
[2025-05-10] MEDS ORDERED: IBUP-1955 PO (09:59)
[2025-05-10] MEDS ORDERED: CHLO25CA22 PO (09:59)
[2025-05-10 11:10] VITALS: BP 160/70; TEMP 98.5; O2SAT 99
== END 2025-05-10 11:11 | disposition home or self-care (01) ==
LOC: ER 08:29
DX: S62.337A Displaced fracture of neck of fifth metacarpal bone, left hand, initial encounter for closed fracture (principal); I10 Essential (primary) hypertension; F10.239 Alcohol dependence with withdrawal, unspecified; Z79.899 Other long term (current) drug therapy; W22.8XXA Striking against or struck by other objects, initial encounter; Y93.89 Activity, other specified; Y92.89 Other specified places as the place of occurrence of the external cause; Y99.8 Other external cause status; Y90.9 Presence of alcohol in blood, level not specified
CPT/HCPCS: 29125; 73110; 73130; 96361; 96374; 96375; 99284; J2060; J2405; J7030